=== PATIENT | female | born 1965 | race Caucasian/White ===

== ENCOUNTER 2019-02-18 11:42 | Day surgery (SDC) | payer BC ==
[~2019-02-18 11:42] MED LIST: Propofol 200 MG/20 ML SDV ONE
[2019-02-18] MEDS ORDERED: Sodium Chloride 0.9% 10 ML Syringe FLUSH PRN (12:00)
[2019-02-18] MEDS: Lactated Ringers 1,000 ML IV SCH (12:40)
--- NOTE | 2019-02-18 13:26 | PCM.HPR ---
H & P Addendum review - H & P Addendum Review Date of Original H & P: 02/16/19 Date Reviewed: 02/18/19 Time Reviewed: 13:26 Patient was Examined: No Changes
[2019-02-18] MEDS ORDERED: Propofol 200 MG/20 ML SDV ONE ×2 (13:29→14:08)
--- NOTE | 2019-02-18 14:03 | PCM.OPNOTE ---
- General Post-Op/Procedure Note Date of Surgery/Procedure: 02/18/19 Operative Procedure(s): Colonoscopy Findings: sig tics Pre Op Diagnosis: Screening Post-Op Diagnosis: Same Anesthesia Technique: MAC Primary Surgeon: Loco Patel Anesthesia Provider: Andreina iLnk Complications: None Condition: Good
--- NOTE | 2019-02-19 09:51 | OR ---
Date of Procedure: 02/18/2019 PREOPERATIVE DIAGNOSIS: Family history of colon cancer in mother. POSTOPERATIVE DIAGNOSIS: Family history of colon cancer in mother. PROCEDURE: Screening colonoscopy. ANESTHESIA: IV sedation. DESCRIPTION OF PROCEDURE: The patient was brought to the procedure room where she was placed on her left side and IV sedation administered. Digital rectal exam was performed, which was normal. Colonoscope was inserted and advanced to the level of the cecum with a moderate amount of difficulty through a poorly prepped colon with fair amount of tortuosity. I was able to reach the cecum, which was confirmed by identifying the appendiceal lumen and ileocecal valve. Upon withdrawing the scope, the ascending, transverse, and descending colon did not have any obvious abnormalities. Small polyps could have been missed. Sigmoid colon was quite tortuous with diverticula present. Rectum was normal and retroflexion was normal. Air was removed and the scope withdrawn. The patient tolerated the procedure well and returned to recovery in stable condition. Recommend colon screening again in 5 years. MODL RADHA WATERS MD /[id number] cc: Nichelle Grover PA-C [place], [place]
== END 2019-02-18 15:40 | disposition home or self-care (01) ==
LOC: LL.SDS 11:42
PROVIDERS: ATTEND Surgery
DX: Z12.11 Encounter for screening for malignant neoplasm of colon (principal); K57.30 Diverticulosis of large intestine without perforation or abscess without bleeding; Z80.0 Family history of malignant neoplasm of digestive organs; F32.9 Major depressive disorder, single episode, unspecified; F41.9 Anxiety disorder, unspecified; E03.9 Hypothyroidism, unspecified; Z87.891 Personal history of nicotine dependence; Z98.84 Bariatric surgery status; Z88.0 Allergy status to penicillin; Z98.890 Other specified postprocedural states
CPT/HCPCS: J2704; J7120